=== PATIENT | male | born 1985 | race Caucasian/White ===

== ENCOUNTER → 2016-11-23 | Outpatient (CLI) | payer MEDICAID | END | disposition home or self-care (01) | LOC: RAD.S 11:58 | PROC: 0D20XYZ Change Other Device in Upper Intestinal Tract, External Approach (ICD-10-PCS; principal; 2016-11-23) | DX: Z43.1 Encounter for attention to gastrostomy (principal); D49.6 Neoplasm of unspecified behavior of brain; R13.10 Dysphagia, unspecified ==